=== PATIENT | male | born 1975 | race Caucasian/White ===

== ENCOUNTER → 2017-12-04 | Outpatient (CLI) | payer OTHER ==
--- NOTE | 2017-12-04 18:34 | Diagnostic Imaging Report ---
Exam: Brain MRI without IV contrast History: Right facial, neck and upper arm numbness Comparison studies: None Technique: Sagittal T2; axial DWI, FLAIR, MPGR, T1, Coronal FLAIR. Intravenous contrast: None Findings: Scalp: Normal in signal . No masses . Bone marrow: Normal in signal intensity. Brain sulci: Appropriate for age. Ventricles: Normal in size. No hydrocephalus. Extra axial spaces: No mass, no fluid collection. Parenchyma: No abnormal signal intensities. No abnormal restricted diffusion. No masses, hemorrhage, or acute or chronic ischemia. Suprasellar region: No abnormalities. Craniocervical junction: Patent foramen magnum. No Chiari malformation . Vessels: Normal flow-voids in the arteries and sinuses. Left maxillary sinus occupied by retention cyst and fluid. Mild mucosal thickening retention cyst in the right maxillary sinus. IMPRESSION: 1. No intracranial abnormalities. 2. Incidental inflammatory changes in the maxillary sinuses (left greater than right). Signed by: Dr. Trevor Guerin M.D. on 12/04/2017 6:31 PM
== END ==
LOC: MRI 15:49
PROVIDERS: ATTEND Family Medicine
DX: R20.0 Anesthesia of skin (principal)
CPT/HCPCS: 70551